=== PATIENT | female | born 1980 | race Caucasian/White ===

== ENCOUNTER → 2019-11-09 | Outpatient (CLI) | payer OTHER ==
--- NOTE | 2019-11-09 13:04 | RADIOLOGY REPORT (SQ) ---
EXAM DESCRIPTION: COOKIE SWALLOW IMAGES COMPLETED DATE/TIME: 11/09/2019 8:46 am REASON FOR STUDY: R13.12 DYSPHAGIA, OROPHARYNGEAL PHASE R13.12 DYSPHAGIA, OROPHARYNGEAL PHASE COMPARISON: None. TECHNIQUE: Videofluoroscopic swallowing examination was performed in conjunction with speech patholo gy. Videofluoroscopic imaging was obtained and reviewed and these are the findings: RADIATION DOSE: Fluoro time 1.1 minutes 1 images saved to PACS. LIMITATIONS: None FINDINGS: The patient was brought into the fluoro room and placed upright on a modified barium swall ow chair. The patient was then given multiple consistencies mixed with barium to swallow under live fluoroscopic video guidance. According to the Speech Pathologist there was no penetration or aspirat ion. Please refer to the speech pathology report for further details. IMPRESSION: NO EVIDENCE OF PENETRATION OR ASPIRATION. PLEASE SEE SPEECH PATHOLOGIST REPORT FOR OTHER FINDINGS AND RECOMMENDATIONS. COMMENT: None Quality ID [id number]: Final reports for procedures using fluoroscopy that document radiation exposure maria ines vicki, or exposure time and number of fluorographic images (if radiation exposure indices are not avail able) TECHNICAL DOCUMENTATION: JOB ID: [id number] 2010 [employer] All Rights Reserved Reading location - IP/workstation name: [id number]
--- NOTE | 2019-11-10 10:55 | ST Modified Barium Swallow ---
Recommendation - Recommendations Recommendations: Regular/thin diet. Meds with thin liquid via cup. Standard aspiration precautions including sitting upright, small bites and sips, alternating solids and liquids. Medical Diagnoses - Medical Diagnoses Medical Diagnosis Description & ICD-10 Code(s): R13.12 Other Medical Diagnoses/Co-Morbidities: goiter. ST Modified Barium Swallow - General Date: 11/09/19 Referring Physician: Dr. Atilio Valero Risks/Precautions: Aspiration Date of Onset: 08/28/19 - Slowly getting worse, has had neck pain/discomfort for years. Reason for Referral: Coughing/choking during PO - History History obtained from: Patient -: Medical - Reports difficulty swallowing, likes to turn head slightly to R to swallow Medications: Zosyn Allergies: Seasonal - Functional Status Prior Functional Status: INDEPENDENT: feeding Current Functional Limitations: feeding - Subjective Patient/caregiver goal(s): safe swallow, r/o aspiration Cognitive-Linguistic Function: WNL Speech Intelligibility: WNL Current Nutritional Means: PO Current PO diet: Regular Current symptoms: Coughing Pain: 1/5 - neck pain - Objective Assessment: Upright - Food Trials Used Food trials used: Thin liquids, [place] thick liquids, Pureed, Regular, Other - Barium tablet The patient: Was Able to Self Feed - Oral-Motor Skills Dentition: Full - Assessment Oral Stage: The pt had adequate bolus cohesion and mastication across textures. No anterior or posterior spillage noted. - Pharyngeal Stage Pharyngeal Stage Comments: Across all textures the pt had adequate hyolaryngeal elevation and full epiglottic inversion. No residue observed. No aspiration or penetration was noted during the evaluation. - Esophageal Stage Esophageal Stage: Pts UES appeared to open fully across all textures. No residue or retrograde movement noted. - Fall Risk Assessment Medications/Conditions that increase fall risks include: Antidepressants, sedatives, anti-arrhythmic, diuretic, benzodiazipenes, neuroleptics. BP regulation problems, cardiac problems, balance or gait deficits, neurological problems. Fall Risk Actions Taken: No action needed - Treatment / Educational Needs: Treatment/Education Needs: Treatment consisted of patient education on the role of the Speech Pathologist. Patient's plan of care and golas were communicated as well as scheduling and attendance policies. Recommendations for initial home program were shared. Patient demonstrated understanding and verbalized agreement. - Impression/Summary Tracheal Aspiration: no Patient presents with: Normal swallow at eval - Recommendations Solid diet recommendations: Regular Strict aspiration precautions: Yes Dysphagia therapy with [employer] SPECIALIST: no Reflux Precautions: Taught to Patient Recommended techniques: Fully Upright During Meal, Small Bites and Sips, Alternate Bites/Sips Supervision: Independent Information, Precautions and Recommendations: Patient (Written), Patient (Verbal) - Plan of Care Summary: Swallow is WNL POC Procedures/Codes: MBSCar ([id number]) Strategies to optimize patient understanding include:: ongoing assessment of educational needs, implementation of educational strategies, and re-education. - - -: Thank you for the opportunity to work with this patient and his/her family. Should you have any questions about this patient's plan or progress, I can be reached at [phone].
== END ==
LOC: RAD 08:14
PROVIDERS: ATTEND Internal Medicine Gastroenterology
DX: R13.12 Dysphagia, oropharyngeal phase (principal)
CPT/HCPCS: 74230